=== PATIENT | female | born 1965 | race Caucasian/White ===

== ENCOUNTER 2017-06-15 10:33 | Day surgery (SDC) | payer BC ==
[2017-06-15] MEDS ORDERED: LIDOCAINE 2% MDV (20MG/ML) 20ML VIAL IV ONE (10:34)
[2017-06-15] MEDS ORDERED: PROPOFOL 10 MG/ML VIAL IV ONE (10:34)
--- NOTE | 2017-06-19 14:20 | Operative Note ---
DATE OF SURGERY: 06/15/2017. SURGEON: Teddy Alvarez D.O. REFERRING PHYSICIAN: Bimal Bauman D.O. PREOPERATIVE DIAGNOSIS: Screening colonoscopy. POSTOPERATIVE DIAGNOSIS: Screening colonoscopy. OPERATION: Colonoscopy and polypectomy. PROCEDURE: Patient is a 52-year-old female who was brought to the endoscopy suite, placed in the supine position, and appropriate monitoring was placed, including nasal O2, pulse oximetry, and blood pressure cuff. Patient then rotated in left lateral position. Propofol anesthesia was titrated to effect. At this time, the digital rectal exam was done. It revealed no internal masses. At this time, a well lubricated PCF-1AL colonoscope inserted in patient's rectum and advanced up to the rectosigmoid junction, a polypoid lesion was encountered. This was removed with cold snare polypectomy. Complete visual hemostasis noted. Scope was advanced up the sigmoid, up to the descending and transverse colon and cecum. Once the cecum was reached, it was identified by the appendiceal orifice and the ileocecal valve. Photographs were taken. The scope was then slowly withdrawn, inspecting all mucosal surface areas. There were normal folds and distensibility seen. The remaining part of the colon appeared grossly normal. The biopsy site was encountered and noted to be hemostatic. Retroflexion maneuver was done in the rectum, which revealed grade 1 hemorrhoids. At this time, the scope was straightened, gas evacuated, and the scope was fully removed. Findings at time of colonoscopy: Distal sigmoid polyp. Recommend repeating this in 5 years or sooner if any problems arise. JASEN
== END 2017-06-15 12:30 | disposition home or self-care (01) ==
LOC: HOP 10:33
PROVIDERS: ATTEND Surgery
DX: Z12.11 Encounter for screening for malignant neoplasm of colon (principal); K63.5 Polyp of colon

== ENCOUNTER 2018-02-14 06:56 | Day surgery (SDC) | payer BC ==
[~2018-02-14 06:56] MED LIST: ACETAMINOPHEN 1,000 MG/100 ML BTL IV ONE
[2018-02-14] MEDS ORDERED: PROPOFOL 10 MG/ML VIAL IV ONE (06:57)
[2018-02-14] MEDS ORDERED: BUPIVACAINE 0.25% W/EPI MPF 30ML VIAL IVP ONE (06:57)
[2018-02-14] MEDS ORDERED: MIDAZOLAM HCL 2MG/2ML VIAL IV ONE (06:57)
[2018-02-14] MEDS ORDERED: LIDOCAINE 1% MDV (10MG/ML) 20ML VIAL SQ ONE (06:57)
[2018-02-14] MEDS ORDERED: SEVOFLURANE 250 ML INH ONE (06:57)
[2018-02-14] MEDS ORDERED: ONDANSETRON HCL IV 4 MG/2 ML VIAL IVP ONE (06:57)
[2018-02-14] MEDS ORDERED: KETOROLAC 30 MG/ML VIAL IVP ONE (06:57)
[2018-02-14] MEDS ORDERED: FENTANYL PF 100MCG/2ML VIAL IV ONE (06:57)
--- NOTE | 2018-02-15 14:00 | Operative Note ---
DATE OF SURGERY: 02/14/2018 Surgeon: Yeison Machuca DO PREOPERATIVE DIAGNOSIS: Torn medial meniscus of the left knee. POSTOPERATIVE DIAGNOSES: 1. Torn medial meniscus of the left knee. 2. Medial mid patella plica, left knee. 3. Chondromalacia of the patella and trochlea, left knee. OPERATION: 1. Arthroscopic partial medial meniscectomy, left knee. 2. Arthroscopic resection of medial mid patella plica, left knee. 3. Arthroscopic chondroplasty of the patella and trochlea, left knee. DESCRIPTION OF PROCEDURE: This 52-year-old female was taken to the operating room and placed in the supine position on the operating room table. General anesthetic was induced and the left lower extremity was elevated. It was exsanguinated and the tourniquet inflated to 300 mmHg. Arthroscopic knee sr applied. Left knee prepped with Hibiclens and draped in the usual sterile fashion. An inferolateral portal was established for the 4 mm arthroscope and initial evaluation of the joint demonstrated grade 2 chondromalacia of the patella mostly involving the median ridge and medial facet. The inferomedial portal was established and probing of this area confirmed the grade 2 changes with loose fragments of articular cartilage. The rotating shaver was placed in the joint and chondroplasty was performed. Resection of the media mid patella plica was also performed when a thickened fibrotic plica was identified. The patient had grade 2 chondromalacia of the trochlea. This lesion was approximately 1.5 to 2 cm wide and torn fragments of the articular cartilage were resected with the rotating shaver. Medial and lateral gutters were found to be normal. The lateral compartment was identified and probing of the articular cartilage and lateral compartment and lateral meniscus did not reveal any pathology. The intracondylar notch was examined and found to be normal. The medial compartment was entered and a complex tear of the posterior horn of the medial meniscus was present. The apex of the tear being at approximately the 10:30 position. Utilizing basket forceps and rotating shaver, we resected back to the apex of the tear which was very near the meniscosynovial junction. We then tapered in both directions to stabilize the remaining meniscus. The posterior horn was torn on the undersurface and approximately 50% of the depth of the meniscus was resected due to instability of the meniscus in that location. Subsequently, the rotating shaver was used to smooth and contour the meniscus. It was then re-probed and confirmed to be stable. The wound was irrigated and suctioned. The instruments were removed. The portals infiltrated with 0.25% Marcaine with epinephrine. Sutures were placed in the arthroscopic portals and the sterile dressings applied and patient taken to the recovery room in satisfactory condition. GROSS PATHOLOGY: This patient demonstrated a complex tear of the posterior horn of the medial meniscus with grade 2 chondromalacia of the patellofemoral joint as described above with a thickened fibrotic medial mid patella plica. CC: DO JASEN Hickman
== END 2018-02-14 11:10 | disposition home or self-care (01) ==
LOC: SUR 06:56
PROVIDERS: ATTEND Orthopaedic Surgery
DX: S83.232A Complex tear of medial meniscus, current injury, left knee, initial encounter (principal); M67.52 Plica syndrome, left knee; M22.42 Chondromalacia patellae, left knee; C50.919 Malignant neoplasm of unspecified site of unspecified female breast
CPT/HCPCS: 29881; 29875; 01400; 81025; J1885; J2405; J3010